=== PATIENT | female | born 1985 | race African-American/Black ===

== ENCOUNTER 2019-08-26 11:25 | Emergency (ER) | payer SELFPAY ==
[~2019-08-26] VITALS: Ht 154.9 cm; Wt 92.7 kg
[2019-08-26 11:48] VITALS: BP 133/99; TEMP 97.5
[2019-08-26 14:43] VITALS: PULSE 80
[2019-08-26] MEDS ORDERED: DAZIDOX10 MG PO (14:45)
== END 2019-08-26 14:46 | disposition home or self-care (01) ==
LOC: COL.ER 11:25
DX: G50.0 Trigeminal neuralgia (principal); Z98.890 Other specified postprocedural states
CPT/HCPCS: J1170; J2550

== ENCOUNTER 2019-09-08 11:13 | Emergency (ER) | payer SELFPAY ==
[~2019-09-08] VITALS: Ht 154.9 cm; Wt 94.1 kg
[~2019-09-08 11:13] MED LIST: DAZIDOX10 MG PO; LYRICA 100MG C100 M1 PO; XANAX 1MG1 MG PO; ZYPREXA 5MG5 MG PO
[2019-09-08 11:21] VITALS: TEMP 97.5
[2019-09-08] MEDS ORDERED: XANAX 1MG1 MG PO ×2 (12:02→12:16)
[2019-09-08] MEDS ORDERED: ZYPREXA 5MG5 MG PO (12:02)
[2019-09-08 12:26] VITALS: BP 136/86; PULSE 90
== END 2019-09-08 12:26 | disposition home or self-care (01) ==
LOC: COL.ER 11:13
DX: F31.89 Other bipolar disorder (principal); G89.29 Other chronic pain; M79.7 Fibromyalgia; G50.0 Trigeminal neuralgia; F17.210 Nicotine dependence, cigarettes, uncomplicated